=== PATIENT | male | born 1980 | race American Indian/Alaskan Native ===

== ENCOUNTER 2018-04-12 19:45 | Emergency (ER) | payer SELFPAY ==
[2018-04-12 20:20] VITALS: BP 147/111
[2018-04-12] MEDS ORDERED: TYLENOL ONE (20:24)
[2018-04-12] MEDS ORDERED: TYLENOL PO ONE (20:24)
--- NOTE | 2018-04-12 21:39 | XRay Report ---
FINAL REPORT PROCEDURE: XR SHOULDER 2+V LT TECHNIQUE: Left shoulder, three views HISTORY: Fell and hurt left shoulder COMPARISON: No prior studies are available for comparison. FINDINGS: No acute fracture or dislocation is seen. There is cortical irregularity along the undersurface of the distal clavicle, likely related to old injury. IMPRESSION: No acute osseous abnormality is identified
== END 2018-04-13 03:35 | disposition left against medical advice (07) ==
LOC: ED 19:45
DX: M25.512 Pain in left shoulder (principal); Z53.21 Procedure and treatment not carried out due to patient leaving prior to being seen by health care provider